=== PATIENT | female | born 1995 | race Caucasian/White ===

== ENCOUNTER → 2017-07-19 | Outpatient (CLI) | payer BC, SELFPAY ==
[~2017-07-19] MED LIST: ACETAMINOPHEN-120 ML PO; CRYSELLE1 EACH PO; IBUPROFEN 800800 M1 PO; LOW-OGESTREL1 EACH PO; NORCO 5-325 TA1 EACH PO; PHENERGAN 25 MG25 MG PO; TRAMADOL 50 MG50 MG PO; UNICOMPLEX M TA1 TA1 PO; VALACYCLOVIR500 MG PO; ZOFRAN ODT4 MG PO; ZPAK PO
[2017-07-19 15:09] LABS: ALBUMIN 3.1 g/dL (3.4-5.0); CALCIUM 8.8 mg/dL (8.5-10.1); CREATININE 0.8 mg/dL (0.6-1.3); POTASSIUM 3.4 mmol/L (3.5-5.1); TOTAL BILIRUBIN 0.3 mg/dL (<0.1-1.0)
--- NOTE | 2017-07-19 17:05 | NUR ---
PT ARRIVED TO INFUSION AND SETTLED INTO A RECLINER WHILE WE WAITED FOR LAB RESULTS. WHEN LABS READY, THEY WERE CALLED TO DR. FULTON, WHO GAVE ORDERS FOR PT TO TAKE POTASSIUM, AND TO GO AHEAD AND RUN THE SOLUMEDROL INFUSION. 20 G IV WAS STARTED IN PT'S R-HAND. MEDICATION INFUSED WITHOUT COMPLICATIONS. AFTER INFUSION COMPLETE, PT'S IV WAS WRAPPED IN [place], SO SHE CAN COME AND GET ANOTHER INFUSION TOMORROW. D/C INSTRUCTIONS GIVEN, AND PT DISCHARGED TO HOME.
== END ==
LOC: M.INFUS 12:30
PROVIDERS: Psychiatry & Neurology Neuromuscular Medicine
DX: H47.10 Unspecified papilledema (principal); H46.12 Retrobulbar neuritis, left eye

== ENCOUNTER → 2017-07-20 | Outpatient (CLI) | payer BC, SELFPAY ==
[2017-07-20 11:39] LABS: CALCIUM 8.7 mg/dL (8.5-10.1); CREATININE 0.8 mg/dL (0.6-1.3); POTASSIUM 3.8 mmol/L (3.5-5.1)
[2017-07-20 15:07] VITALS: BP 128/73
--- NOTE | 2017-07-20 16:35 | NUR ---
PT ARRIVED TO PRE-OP FOR INFUSION AT 1452. SETTLED INTO RECLINER. SOLUMEDROL INFUSION STARTED AND RAN FOR ABOUT 1.5HRS. PT GIVEN INSTRUCTIONS ON RETURNING TOMORROW FOR FINAL IV DOSE, AND ALSO GIVEN HER MEDROL DOSE PACK PRESCRIPTION, WITH INSTRUCTIONS TO START THAT ON THE . SHE TOLERATED WELL. DC'ED HOME AT THIS TIME.
== END ==
LOC: M.INFUS 06:51 → M.LAB 12:00
PROVIDERS: Psychiatry & Neurology Neuromuscular Medicine
DX: H47.10 Unspecified papilledema (principal); H46.9 Unspecified optic neuritis

== ENCOUNTER → 2017-07-21 | Outpatient (CLI) | payer BC, SELFPAY ==
[2017-07-21 10:01] LABS: CALCIUM 8.7 mg/dL (8.5-10.1); CREATININE 0.8 mg/dL (0.6-1.3); POTASSIUM 3.3 mmol/L (3.5-5.1)
[2017-07-21 10:40] VITALS: BP 130/74
[2017-07-21 12:25] VITALS: BP 138/70
--- NOTE | 2017-07-21 12:45 | NUR ---
ARRIVED AMUBLATORY. MADE SELF COMFORTABLE IN RECLINER. IV TO BACK OF RIGHT HAND INTACT WITH DRESSING C/D/I. IV PATENT WITH EASY FLUSH. LABS DRAWN PER ORDER. DENIES ADVERSE REACTION TO YESTERDAY'S DOSE OF SAME. STATED EYE SIGHT IS IMPROVING. INFUSION COMPLETED AND TOLERATED WELL. DENEIS NEEDS OR QUESTIONS AT DISCHARGE.
== END ==
LOC: M.INFUS 01:43
PROVIDERS: Psychiatry & Neurology Neuromuscular Medicine
DX: H47.10 Unspecified papilledema (principal)

== ENCOUNTER → 2017-08-11 | Outpatient (CLI) | payer BC, SELFPAY ==
[2017-08-11 11:24] LABS: ABSOLUTE EOSINOPHILS 0.1 thou/uL (0.0-0.7); ABSOLUTE LYMPHOCYTES 1.2 thou/uL (0.8-5.3); ABSOLUTE MONOCYTES 0.4 thou/uL (0.0-1.2); ABSOLUTE NEUTROPHILS 2.8 thou/uL (1.6-8.1); BASOPHILS 0.5 %; EOSINOPHILS 1.2 %; HEMATOCRIT 41.6 % (37.0-47.0); HEMOGLOBIN 14.3 gm/dL (12.0-15.0); LYMPHOCYTES 26.4 %; MCH 30.2 pg (26.0-34.0); MCHC 34.4 g/dL (28.0-37.0); MCV 87.6 fL (80.0-100.0); MONOCYTES 8.9 %; MPV 9.8 fl. (7.2-11.1); NUCLEATED RBCS 0 /100WBC; PLATELET COUNT* 242 thou/uL (150-400); RBC 4.75 mil/uL (4.20-5.00); WBC 4.5 thou/uL (4.0-11.0)
[2017-08-11 11:44] LABS: ALBUMIN 3.1 g/dL (3.4-5.0); CALCIUM 8.9 mg/dL (8.5-10.1); CREATININE 0.8 mg/dL (0.6-1.3); TOTAL BILIRUBIN 0.5 mg/dL (<0.1-1.0); TOTAL PROTEIN 6.9 g/dL (6.4-8.2)
== END ==
LOC: M.LAB 11:01
PROVIDERS: Psychiatry & Neurology Neuromuscular Medicine
DX: G35 Multiple sclerosis (principal)

== ENCOUNTER → 2018-10-18 | Outpatient (CLI) | payer BC | LOC: M.MRI 14:05 | DX: G35 Multiple sclerosis (principal); I67.82 Cerebral ischemia ==

== ENCOUNTER → 2019-03-31 | Outpatient (CLI) | payer BC | LOC: M.MRI 17:14 | DX: G35 Multiple sclerosis (principal); R90.82 White matter disease, unspecified; J34.89 Other specified disorders of nose and nasal sinuses ==